=== PATIENT | female | born 1950 | race African-American/Black ===

== ENCOUNTER 2019-06-28 09:44 | Outpatient (CLI) | payer MEDICARE, MEDICAID, SELFPAY ==
--- NOTE | ~2019-06-28 | NM_ITS ---
EXAMINATION: NM avel stress w perfusion DATE: 06/28/2019 13:00 INDICATION: Chest discomfort TECHNIQUE: Rest images were obtained following intravenous administration of 8 mCi Tc99m tetrofosmin (Myoview). The patient was infused intravenously with Lexiscan (Regadenoson). Then, 25.7 mCi Tc99m te trofosmin (Myoview) was administered intravenously, and stress images were obtained. Data was reconst ructed into short axis and horizontal and vertical long axis SPECT images. Gated SPECT images were al so obtained. COMPARISON: None. FINDINGS: There is no definite reversible or fixed perfusion abnormality to suggest ischemia or infar ction. There is normal left ventricular chamber size, wall motion and ejection fraction. Left ventr icular ejection fraction measures 68%. IMPRESSION: 1. Normal myocardial perfusion at rest and during stress. 2. Left ventricular ejection fraction measuring 68%. Reviewed, dictated and finalized at location A.
--- NOTE | 2019-06-28 10:37 | EST_ITS ---
Patient Info Name: Nataliya Orantes Age: 68 years : 1950 Gender: Female Ht: 59 in Wt: 138 lbs BSA: 1.64 m2 Exam Date: 06/28/2019 11:39 AM Exam Location: [facility] Stress Patient Status: Outpatient Admit Date: 06/28/2019 Staff Ordering Physician: Andres Galicia DO Attending Provider: Andres Galicia DO Exercise Technologist: Shellie Worley RDCS Exercise Physician: Timbo Farmer DO Exam Type: CA stress avel w NM Study Info A regadenoson stress test was performed. Summary 1. 1. Negative lexiscan stress test for ischemic ST changes by ECG criteria. 2. 2. Baseline hypertension. 3. 3. Nuclear scan to follow and will be reported separately. Please correlate with it. 4. 4. Patient informed of the above results. Protocol: Lexiscan Stress ECG Details Stage: REST Duration (min): 6 min : 39 sec HR (bpm): 86 SBP (mmHg): 146 DBP (mmHg): 93 Stage: REST Duration (min): 10 min : 19 sec HR (bpm): 83 SBP (mmHg): 146 DBP (mmHg): 93 Stage: STAGE 1 Duration (min): 1 min : 0 sec HR (bpm): 127 SBP (mmHg): 146 DBP (mmHg): 93 Stage: RECOVERY Duration (min): 1 min : 0 sec HR (bpm): 123 SBP (mmHg): 146 DBP (mmHg): 93 Stage: RECOVERY Duration (min): 2 min : 0 sec HR (bpm): 120 SBP (mmHg): 149 DBP (mmHg): 88 Stage: RECOVERY Duration (min): 3 min : 0 sec HR (bpm): 110 SBP (mmHg): 148 DBP (mmHg): 85 Stage: RECOVERY Duration (min): 3 min : 11 sec HR (bpm): 110 SBP (mmHg): 148 DBP (mmHg): 85 Rest HR: 83 bpm Peak HR: 133 bpm Rest Sys BP: 146 mmHg Peak Sys BP: 149 mmHg Max Pred HR: 152 bpm % Max Pred HR: 88 % Target HR: 129 bpm Max RPP: 19,817 bpm*mmHg Termination Reason: Completed protocol Cardiac Symptoms: Shortness of breath Total Time: 1 min : 0 sec Rest Parnell BP: 93 mmHg Peak Parnell BP: 88 mmHg Total Dose: 0.4 mg Resting ECG Sinus rhythm, cannot r/o septal infarct, age indeterminate, borderline T wave in inferior leads. Stress ECG No ST changes. Arrhythmias None. Report Signatures
== END 2019-06-28 09:45 | disposition home or self-care (01) ==
LOC: ANHCARD 09:54
PROVIDERS: PCP Internal Medicine; Visit Provider Internal Medicine
DX: R07.89 Other chest pain (principal); I10 Essential (primary) hypertension
CPT/HCPCS: 78452; 93017; A9502; J2785

== ENCOUNTER 2019-09-15 10:30 | Outpatient (CLI) | payer MEDICARE, MEDICAID, SELFPAY ==
--- NOTE | 2019-09-15 11:30 | NEURO_ITS ---
Patient Number: [id number] Impression: # Complains of numbness of hands. # Bilateral Carpal Tunnel Syndrome, right more than left. # No ulnar neuropathy. # Normal needle/EMG exam. Nerve Conduction Studies Anti Sensory Summary Table Stim Site NR Peak (ms) P-T Amp (?V) Site1 Site2 Delta-P (ms) Dist (cm) Sagar (m/s) Left Median Anti Sensory (2-3nd Digit) Wrist 3.6 45.4 Wrist 2-3nd Digit 3.6 14.0 39 Wrist 3.9 24.8 Wrist 2-3nd Digit 3.6 14.0 39 Right Median Anti Sensory (2-3nd Digit) Wrist 7.3 81.6 Wrist 2-3nd Digit 7.3 14.0 19 Wrist 5.4 76.7 Wrist 2-3nd Digit 7.3 14.0 19 Left Radial Anti Sensory (Base 1st Digit) Wrist 1.7 77.6 Wrist Base 1st Digit 1.7 0.0 Right Radial Anti Sensory (Base 1st Digit) Wrist 2.1 50.3 Wrist Base 1st Digit 2.1 0.0 Left Ulnar Anti Sensory (5th Digit) Wrist 2.3 30.0 Wrist 5th Digit 2.3 14.0 61 Right Ulnar Anti Sensory (5th Digit) Wrist 2.2 13.2 Wrist 5th Digit 2.2 14.0 64 Motor Summary Table Stim Site NR Onset (ms) O-P Amp (mV) Site1 Site2 Delta-0 (ms) Dist (cm) Sagar (m/s) Left Median Motor (Abd Poll Brev) Wrist 4.1 4.5 Elbow Wrist 4.6 26.0 57 Elbow 8.7 4.3 Right Median Motor (Abd Poll Brev) Wrist 5.8 2.7 Elbow Wrist 4.5 24.0 53 Elbow 10.3 2.7 Left Ulnar Motor (Abd Dig Minimi) Wrist 2.0 5.5 A Elbow Wrist 5.3 29.0 55 A Elbow 7.3 2.2 Right Ulnar Motor (Abd Dig Minimi) Wrist 2.3 2.8 A Elbow Wrist 4.7 26.0 55 A Elbow 7.0 2.5 F Wave Studies NR F-Lat (ms) L-R F-Lat (ms) Left Median (Mrkrs) (Abd Poll Brev) 27.83 1.75 Right Median (Mrkrs) (Abd Poll Brev) 29.58 1.75 Left Ulnar (Mrkrs) (Abd Dig Min) 26.45 0.94 Right Ulnar (Mrkrs) (Abd Dig Min) 27.39 0.94 EMG Side Muscle Nerve Root Ins Act Fibs Amp Dur Recrt Comment Right 1stDorInt Ulnar C8-T1 Nml Nml Nml Nml Nml Right Ext Indicis Radial (Post Int) C7-8 Nml Nml Nml Nml Nml Right Ext Digitorum Radial (Post Int) C7-8 Nml Nml Nml Nml Nml Right BrachioRad Radial C5-6 Nml Nml Nml Nml Nml Right PronatorTeres Median C6-7 Nml Nml Nml Nml Nml Right Abd Poll Brev Median C8-T1 Nml Nml Nml Nml Nml Left 1stDorInt Ulnar C8-T1 Nml Nml Nml Nml Nml Left Ext Indicis Radial (Post Int) C7-8 Nml Nml Nml Nml Nml Left Ext Digitorum Radial (Post Int) C7-8 Nml Nml Nml Nml Nml Left BrachioRad Radial C5-6 Nml Nml Nml Nml Nml Left PronatorTeres Median C6-7 Nml Nml Nml Nml Nml Left Abd Poll Brev Median C8-T1 Nml Nml Nml Nml Nml MTDD
== END 2019-09-15 10:31 | disposition home or self-care (01) ==
LOC: ANHNEURO 10:34
PROVIDERS: PCP Internal Medicine; Visit Provider Internal Medicine
DX: G62.9 Polyneuropathy, unspecified (principal); G56.03 Carpal tunnel syndrome, bilateral upper limbs
CPT/HCPCS: 95886; 95911

== ENCOUNTER → 2020-03-16 09:52 | Outpatient (CLI) | payer MEDICARE, MEDICAID, SELFPAY ==
--- NOTE | ~2020-03-16 | CT_ITS ---
EXAMINATION: CT abdomen pelvis wo con DATE: 03/16/2020 10:19 INDICATION: Left lower quadrant and appropriate abdominal pain. Nausea. TECHNIQUE: Computed tomography (CT) of the abdomen and pelvis was performed without intravenous contr ast. The dose-length product was 411.73 mGy-cm. Automated exposure control and iterative reconstructi on technique were employed. COMPARISON: None. FINDINGS: Lung bases unremarkable. Heart size normal. No significant pleural or pericardial effusion. There is atherosclerosis. There are calcified granulomas of the liver and spleen. The pancreas, adre nal glands and left kidney are unremarkable. There is a 1.8 cm right renal cyst. There is a nonobstru cting right renal stone. No free air or free fluid. No abnormal pelvic masses or fluid collections. G allbladder is present. No lymphadenopathy. There is a sclerotic lesion in the left pubic symphysis, l ikely a bone island. Mild dextrocurvature of the lumbar spine. IMPRESSION: 1. Nonobstructing right renal stone. Reviewed, dictated and finalized at location B. ARCH STATISTICIAN
== END ==
PROVIDERS: PCP Internal Medicine; Visit Provider Clinical Nurse Specialist
DX: R10.9 Unspecified abdominal pain (principal); N20.0 Calculus of kidney; I70.90 Unspecified atherosclerosis; N28.1 Cyst of kidney, acquired
CPT/HCPCS: 74176

== ENCOUNTER 2020-10-11 12:03 | Outpatient (CLI) | payer MEDICARE, MEDICAID, SELFPAY ==
--- NOTE | ~2020-10-11 | CT_ITS ---
EXAMINATION: CT abdomen pelvis wo con DATE: 10/11/2020 13:00 INDICATION: Diverticulitis. TECHNIQUE: Computed tomography (CT) of the abdomen and pelvis was performed without intravenous contr ast. Automated exposure control and iterative reconstruction technique were employed. The dose-length product was 247.72 mGy-cm. COMPARISON: CT abdomen and pelvis 03/16/2020 FINDINGS: The visualized portions of the lung bases demonstrate mild atelectasis. No pleural effusion . The heart size is normal. No pericardial effusion. Calcifications in the liver and spleen are consi stent with old granulomatous disease. The gallbladder, pancreas, adrenal glands, and left kidney are normal. There are cysts in right kidney measuring up to 15 mm. There is no urolithiasis. There is div erticulosis of the colon without evidence of diverticulitis. The appendix is normal. There are no pat hologically enlarged lymph nodes. There is no free intraperitoneal fluid. There is shrapnel in the pa raspinal muscles and posterior subcutaneous fat. There is mild thoracolumbar spondylosis. IMPRESSION: 1. No evidence of diverticulitis. Reviewed, dictated and finalized at location A.
== END 2020-10-11 12:04 | disposition home or self-care (01) ==
PROVIDERS: PCP Internal Medicine; Visit Provider Clinical Nurse Specialist
DX: K57.92 Diverticulitis of intestine, part unspecified, without perforation or abscess without bleeding (principal)
CPT/HCPCS: 74176

== ENCOUNTER 2022-09-26 09:35 | Outpatient (CLI) | payer MEDICARE, MEDICAID, SELFPAY ==
[2022-09-26 16:56] LABS: Basophils Percent Auto 0.3 % (0.2-1.2); Eosinophils Percent Auto 0.3 % (0-4.4); Hematocrit 50.4 % (37.0-47.0); Hemoglobin 16.8 g/dL (12.0-15.0); Immature Granulocyte Absolute 0.02 K/mm3 (0.00-0.031); Immature Granulocyte Percent A 0.3 % (0-0.5); Lymphocytes Absolute Auto 2.79 K/mm3 (0.9-3.2); Lymphocytes Percent Auto 42.1 % (18.3-44.2); Mean Corpuscular HGB Conc 33.3 g/dl (32-36); Mean Corpuscular Hemoglobin 30.4 pg (26-34); Mean Corpuscular Volume 91.3 fl (80-100); Mean Platelet Volume 9.1 fl (7.4-10.4); Monocytes Absolute Auto 0.5 K/mm3 (0.1-0.6); Monocytes Percent Auto 8.1 % (2.6-8.5); Neutrophils Absolute Auto 3.2 K/mm3 (1.3-6.7); Neutrophils Percent Auto 48.9 % (45.5-73.1); Platelet Count Result 341 k/mm3 (150-375); Red Blood Count 5.52 M/mm3 (4.2-5.4); Red Cell Distribution Width 14.3 % (11.5-14.5); White Blood Count 6.6 K/mm3 (4.5-10.0)
[2022-09-26 16:58] LABS: Appearance Urine Turbid (Clear); Bacteria Urine None Seen /hpf; Bilirubin Urine Negative (Negative); Blood Urine Negative (Negative); Color Urine Yellow (Yellow); Glucose Urine UA Negative (Negative); Ketones Urine Negative (Negative); Leukocyte Esterase Ur Negative LEU/UL (NEGATIVE); Nitrate Urine Negative (Negative); Non Pathogenic Casts 0-2; Protein Urine Negative (Negative); Specific Grav Ur 1.012 (1.001-1.035); Squamous Epithelial Cell Urine Occasional /hpf (Few); WBC Urine 0-5 /hpf (0-3); pH Urine 7.5 (5.0-9.0)
[2022-09-26 17:15] LABS: Add Urine Microscopic? YES
[2022-09-26 17:40] LABS: Erythrocyte Sedimentation Rate 5 mm/hr (0-20)
[2022-09-26 19:20] LABS: Alanine Aminotransferase 15 U/L (6-35); Albumin Level 4.6 g/dL (3.5-5.1); Alkaline Phosphatase 69 U/L (38-126); Anion Gap 10 mmol/L (8-16); Aspartate Amino Transferase 25 U/L (14-36); Blood Urea Nitrogen 7 mg/dL (7-17); Calcium 9.5 mg/dL (8.4-10.2); Carbon Dioxide 27 mmol/L (22-30); Chloride 105 mmol/L (98-107); Cholesterol 216 mg/dL (0-200); Estimated Glomerular Filt Rate > 60; Glucose 125 mg/dL (65-110); HDL Direct 57 mg/dL; Potassium 2.9 mmol/L (3.4-5.0); Sodium 142 mmol/L (137-145); Triglycerides 100 mg/dL (<150)
[2022-09-26 19:31] LABS: LDL Cholesterol Direct 130 mg/dL
[2022-09-26 19:50] LABS: Thyroid Stimulating Hormone 0.957 uIU/mL (0.465-4.680)
== END 2022-09-26 09:36 | disposition home or self-care (01) ==
LOC: ANHGOSHLAB 09:37
PROVIDERS: PCP Internal Medicine; Visit Provider Internal Medicine
DX: E87.6 Hypokalemia (principal); K92.1 Melena; R30.0 Dysuria; R10.9 Unspecified abdominal pain; F41.9 Anxiety disorder, unspecified; E78.5 Hyperlipidemia, unspecified; I10 Essential (primary) hypertension
CPT/HCPCS: 36415; 80053; 80061; 81001; 84443; 85025; 85652

== ENCOUNTER 2022-11-12 14:42 | Outpatient (CLI) | payer MEDICARE, MEDICAID, SELFPAY ==
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
== END 2022-11-12 14:43 | disposition home or self-care (01) ==
PROVIDERS: PCP Internal Medicine; Visit Provider Internal Medicine
DX: M54.50 Low back pain, unspecified (principal); G89.29 Other chronic pain
CPT/HCPCS: 72080